=== PATIENT | male | born 1955 | race Caucasian/White ===

== ENCOUNTER → 2017-02-27 | Day surgery (SDC) | payer OTHER ==
[2017-02-10 08:21] VITALS: Ht 188 cm; Wt 131.8 kg
[~2017-02-27] VITALS: Ht 188 cm; Wt 131.8 kg
[~2017-02-27] MED LIST: ASPI81TA28 PO; CLOB-65 EXT; COEN100C3 PO; EZET10TA63 PO; KETO2SHA TOP; KRIL1000 PO; LIDOCAINE HCL 2% 2 ML VIAL (20MG/ML) ONE; METO-217 PO; MULTTAB PO; PROPOFOL IV EMULSION 10 MG/ML 20 ML VIAL IV ONE; SODIUM CHLORIDE 0.9% 500ML 500 ML IV ONE; TRIA0.1C20 TOP
--- NOTE | 2017-02-27 14:11 | Endo History and Physical ---
History & Physical Date of Service: Feb 27, 2017. Chief Complaint: history of polyps Referring Physician: Dr. Vo History of Present Illness PT for colon for polyp hx and anal fissures Past Surgical History Hx Cardiac Surgery: Yes (HEART CATH X3, NO STENTS; AORTIC DISSECTION REPAIR 2010) Hx Internal Defibrillator: No Hx Pacemaker: No Hx Abdominal Surgery: Yes (APPY) Hx of Implantable Prosthesis: No Hx Post-Op Nausea and Vomiting: No Hx Cancer Surgery: No Hx Thoracic Surgery: No Hx Orthopedic: No Hx Urinary Tract Surgery: No Family History None Social History Smoking Status: Never Smoker Hx Substance Use: No Hx Alcohol Use: Yes (OCCASIONAL) Allergies Coded Allergies: Atorvastatin (Verified Adverse Reaction, Mild, JOINTS HURT, 02/27/17) Current Medications Reported Home Medications Medications Dose Route/Sig Max Daily Dose Days Date Category Dose Instructions Zetia (Ezetimibe) 10 Mg Tab 10 Mg PO QAM 02/10/17 Reported Co Q-10 (Coenzyme Q10 (Ubidecarenone)) 100 Mg Cap 1 Cap PO QAM 02/10/17 Reported Toprol Xl (Metoprolol Succinate) 50 Mg Tabcr 50 Mg PO QAM 02/10/17 Reported Aristocort 0.1% (Triamcinolone Acetonide) Cr 1 Appln TOP BID PRN 02/13/15 Reported Mvi With Minerals (Multivitamins/Minerals) Tab 1 Tab PO QAM 02/13/15 Reported Krill Oil 1 Cap Cap 1 Cap PO QAM 02/13/15 Reported Ketoconazole (Ketoconazole (Topical)) 2 % Sha 1 Appln TOP PRN UD 02/13/15 Reported Temovate 0.05% (Clobetasol Propionate) Cr 1 Appln EXT DAILY PRN 02/13/15 Reported MASSAGE INTO SCALP Aspirin Ec (Aspirin) 81 Mg Tab 81 Mg PO QAM 02/13/15 Reported Vital Signs Weight (Kilograms): 131.82 Height (Feet): 6 Height (Inches): 2 Date Time Temp Pulse Resp B/P (MAP) Pulse Ox O2 Delivery O2 Flow Rate FiO2 02/27/17 13:34 36.6 75 16 142/80 (100) 96 Room Air Physical Exam AAOx3 Nls1s2 Lungs CTA ABd soft NT/ND + BS - CCE Assessment and Plan colonoscopy today
--- NOTE | 2017-02-27 14:37 | Discharge Instructions ---
Endoscopy Patient Instructions Date / Procedure(s) Performed Feb 27, 2017. Colonoscopy Allergy Information Coded Allergies: Atorvastatin (Verified Adverse Reaction, Mild, JOINTS HURT, 02/27/17) Discharge Date / Findings Feb 27, 2017. polyps-removed; diverticulosis, hemorrhoids Medication Instructions Stopped Medication(s): took ASA yesterday Provider Instructions Activity Restrictions - No exercising or heavy lifting for 24 hours. - Do not drink alcohol the day of the procedure. - Do not drive a car or operate machinery until the day after the procedure. - Do not make any important decisions or sign important papers in 24 hours after the procedure. Following Day: - Return to full activity which may include returning to work/school. Diet Start your diet with liquids and light foods (jello, soup, juice, toast). Then eat your usual diet if not nauseated. Treatment For Common After Affects For mild abdominal pain, bloating, or excessive gas: - Rest - Eat lightly - Lie on right side Follow-Up Information Follow-up with Dr. Vo as scheduled Anesthesia Information What You Should Know You have had a procedure that required some medicine to reduce anxiety and discomfort. This treatment is called moderate sedation. After receiving the treatment, you may be sleepy, but you will be able to breathe on your own. The effects of the treatment may last for several hours. Follow these instructions along with Activity/Diet recommendations noted above: * Do NOT do anything where dizziness or clumsiness would be dangerous. * Rest quietly at home today, then you can be up and about tomorrow. * Have a responsible person stay with you the rest of today. * You may have had an I.V. today. If so, you may take the dressing off later today. Recommendations Call your doctor if: * Trouble breathing * Continuous vomiting for more than 24 hours * Temperature above 101 degrees * Severe abdominal pain or bloating * Pain not relieved by pain medicine ordered * There is increased drainage or redness from any incision * A large amount of rectal bleeding greater than 2-3 tablespoons. (If you had a polyp/s removed or have hemorrhoids, a small amount of blood - from the rectum is to be expected.) * You have any unanswered questions or concerns. IN THE EVENT OF A SERIOUS EMERGENCY, GO TO THE NEAREST EMERGENCY ROOM Your discharge instructions were prepared by provider Jamie Chavez. Patient Instructions Signature Page Evan Deluca Patient (or Guardian) Signature/Date: I have read and understand the instructions given to me by my caregivers. Caregiver/RN/Doctor Signature/Date: The above-named patient and/or guardian has received patient instructions on this date. + Original Patient Signature Page (only) stays with chart. Please make copy for patient.
--- NOTE | 2017-02-27 14:52 | GI REPORT ---
Procedure Date: 02/27/2017 1:21 PM Procedure: Colonoscopy Indications: High risk colon cancer surveillance: Personal history of colonic polyps, reported hx of anal fissure Medicines: Propofol per Anesthesia Complications: No immediate complications. Estimated blood loss: Minimal. Estimated Blood Loss: Estimated blood loss was minimal. Procedure: Pre-Anesthesia Assessment: - Prior to the procedure, a History and Physical was performed, and patient medications and allergies were reviewed. The patient's tolerance of previous anesthesia was also reviewed. The risks and benefits of the procedure and the sedation options and risks were discussed with the patient. All questions were answered, and informed consent was obtained. Prior Anticoagulants: The patient has taken no previous anticoagulant or antiplatelet agents. ASA Grade Assessment: III - A patient with severe systemic disease. After reviewing the risks and benefits, the patient was deemed in satisfactory condition to undergo the procedure. After I obtained informed consent, the scope was passed under direct vision. Throughout the procedure, the patient's blood pressure, pulse, and oxygen saturations were monitored continuously. The scope was introduced through the anus and advanced to the terminal ileum, with identification of the appendiceal orifice and IC valve. The colonoscopy was performed without difficulty. The patient tolerated the procedure well. The quality of the bowel preparation was good. Findings: The perianal and digital rectal examinations were normal. Pertinent negatives include normal sphincter tone, no palpable rectal lesions and no anal lesion or abnormality was detected. Two sessile polyps were found in the rectum. The polyps were 2 to 4 mm in size. These polyps were removed with a cold snare. Resection and retrieval were complete. Estimated blood loss was minimal. Verification of patient identification for the specimen was done by the physician and police crime scene technician using the patient's name and medical record number. Multiple small-mouthed diverticula were found in the sigmoid colon. The terminal ileum appeared normal. A localized area of mildly prominent IC valve( likely lipomatous) mucosa was found at the ileocecal valve. Biopsies were taken with a cold forceps for histology. Estimated blood loss was minimal. Verification of patient identification for the specimen was done by the physician and police crime scene technician using the patient's name and medical record number. Non-bleeding internal hemorrhoids were found during retroflexion. The hemorrhoids were moderate. No features of anal fissure detected on today's exam. No additional abnormalities were found on retroflexion. Impression: - Two 2 to 4 mm polyps in the rectum, removed with a cold snare. Resected and retrieved. - Diverticulosis in the sigmoid colon. - The examined portion of the ileum was normal. - Prominent IC valve( likely lipomatous) mucosa at the ileocecal valve. Biopsied. - Non-bleeding internal hemorrhoids. Recommendation: - Discharge patient to home (ambulatory). - Resume regular diet. - High fiber diet with plenty of fruits/vegetables and water if you do not have a water restriction. Keep stools soft and comfortable to pass. - Return to GI clinic as previously scheduled. - Return to referring physician as previously scheduled. MD Jamie Coleman MD 02/27/2017 2:51:56 PM This report has been signed electronically. Note Initiated On: 02/27/2017 1:21 PM I attest to the content of the Intraoperative Record and orders documented therein, exceptions below
--- NOTE | 2017-02-27 15:03 | Anesthesiology Progress Note ---
Anesthesia Post Op Note Date & Time Feb 27, 2017 at 15:03 Vital Signs Pain Intensity: 0 Vital Signs Past 12 Hours Date Time Temp Pulse Resp B/P (MAP) Pulse Ox O2 Delivery O2 Flow Rate FiO2 02/27/17 14:53 74 16 69/73 (72) 98 Room Air 02/27/17 14:40 77 16 104/73 (83) 98 Room Air 02/27/17 13:34 36.6 75 16 142/80 (100) 96 Room Air Notes Mental Status: alert / awake / arousable, participated in evaluation Pt Amnestic to Procedure: Yes Nausea / Vomiting: adequately controlled Pain: adequately controlled Airway Patency, RR, SpO2: stable & adequate BP & HR: stable & adequate Hydration State: stable & adequate Anesthetic Complications: no major complications apparent
[2017-02-27 15:08] VITALS: BP 128/80; PULSE 72; O2SAT 98
== END | disposition home or self-care (01) ==
LOC: C.GI 13:05
PROVIDERS: ATTEND Internal Medicine Gastroenterology
DX: Z12.11 Encounter for screening for malignant neoplasm of colon (principal); Z86.010 Personal history of colon polyps; K62.1 Rectal polyp; K57.30 Diverticulosis of large intestine without perforation or abscess without bleeding; K64.8 Other hemorrhoids; Z79.82 Long term (current) use of aspirin; Z79.899 Other long term (current) drug therapy